=== PATIENT | male | born 1940 | race Caucasian/White ===

== ENCOUNTER 2017-08-01 13:30 | Observation (INO) | payer MEDICARE, OTHER ==
[~2017-08-01] VITALS: Ht 177.8 cm; Wt 92.0 kg
[~2017-08-01 13:30] MED LIST: LISI-222 PO
[2017-08-01 14:47] LABS: BASOPHILS % (AUTO) 0.4 % (0-1); EOSINOPHILS # (AUTO) 0.6 X10'3 (0-0.9); EOSINOPHILS % (AUTO) 7.4 % (0-6); HEMATOCRIT 48.9 % (42.0-52.0); HEMOGLOBIN 16.3 g/dl (14.0-17.9); LYMPHOCYTES # (AUTO) 2.2 X10'3 (1.1-4.8); MEAN CORPUSCULAR HEMOGLOBIN 31.7 PG (27.0-31.0); MEAN CORPUSCULAR HGB CONC 33.2 % (33.0-36.5); MEAN CORPUSCULAR VOLUME 95.4 FL (78-98); MEAN PLATELET VOLUME 7.9 FL (7.4-10.4); MONOCYTES # (AUTO) 0.7 X10'3 (0-0.9); MONOCYTES % (AUTO) 9.6 % (2-12); NEUTROPHILS # (AUTO) 4.1 X10'3 (1.8-7.7); NEUTROPHILS % (AUTO) 53.6 % (42-75); PLATELET COUNT 187 X10'3 (140-440); RED BLOOD COUNT 5.13 X10'6 (4.70-6.10); RED CELL DISTRIBUTION WIDTH 13.5 % (11.5-14.5); WHITE BLOOD COUNT 7.7 X10'3 (4.5-11.0)
[2017-08-01 14:57] LABS: PARTIAL THROMBOPLASTIN TIME 27 SECONDS (22-32); PROTHROMBIN TIME 10.4 SECONDS (9.0-12.0)
[2017-08-01 15:02] LABS: ALANINE AMINOTRANSFERASE 32 U/L (12-78); ALBUMIN 3.7 G/DL (3.4-5.0); ALBUMIN/GLOBULIN RATIO 0.9 (1.1-1.5); ALKALINE PHOSPHATASE 91 IU/L (46-116); ANION GAP 8 (8-16); ASPARTATE AMINO TRANSFERASE 19 U/L (10-37); BILIRUBIN,TOTAL 0.4 MG/DL (0.1-1.0); BLOOD UREA NITROGEN 16 MG/DL (7-18); BUN/CREATININE RATIO 15.5 (5.4-32.0); CALCIUM 9.1 MG/DL (8.5-10.1); CHLORIDE 101 MMOL/L (99-107); CREATININE 1.03 MG/DL (0.60-1.10); GLUCOSE 100 MG/DL (70-104); POTASSIUM 3.9 MMOL/L (3.5-5.1); SODIUM 136 MMOL/L (135-145); TOTAL CARBON DIOXIDE 26.8 MMOL/L (24-32); TOTAL PROTEIN 7.7 G/DL (6.4-8.2); eGFR 70 ML/MIN
[2017-08-01] MEDS ORDERED: aspirin 325mg tablet PO ONE (15:35)
[2017-08-01 17:19] LABS: CLARITY,URINE CLEAR (Clear); COLOR,URINE YELLOW (Yellow); GLUCOSE, URINE NEGATIVE (Neg); KETONES,URINE NEGATIVE (Neg); LEUKOCYTE ESTERASE ,URINE NEGATIVE (Neg); NITRITES, URINE NEGATIVE (Neg); OCCULT BLOOD,URINE NEGATIVE (Neg); PH,URINE 5.5 (4.8-8.0); PROTEIN,URINE NEGATIVE (Neg); UROBILINOGEN,URINE 0.2 E.U/dL (0.2-1.0)
[2017-08-01] MEDS ORDERED: potassium Cl 40MEQ/NS 500ml 500 ML IV PRN ×2 (17:20)
[2017-08-01] MEDS ORDERED: potassium Cl 20 mEq SR tablet PO PRN ×2 (17:20)
[2017-08-01] MEDS ORDERED: magnesium 4gm in 100ml NS 100 ML IV PRN (17:20)
[2017-08-01] MEDS ORDERED: magnesium Cl slow-release 64mg tablet PO PRN (17:20)
[2017-08-01] MEDS ORDERED: bisacodyl 10mg suppository rectal RC PRN (17:20)
[2017-08-01] MEDS ORDERED: acetaminophen 325mg tablet PO PRN (17:20)
[2017-08-01] MEDS ORDERED: magnesium hydroxide 30ml (MOM) UD suspension PO PRN (17:20)
[2017-08-01] MEDS ORDERED: mag hydrox/Alum hydrox/simeth 30ml oral suspension PO PRN (17:20)
[2017-08-01] MEDS ORDERED: magnesium 2GM in 50ml NS 50 ML IV PRN (17:20)
[2017-08-01] MEDS ORDERED: ondansetron/PF 4mg/2ml inj IV PRN (17:20)
[2017-08-01 17:22] LABS: UA COLLECTION TYPE CLN CATCH MIDSTREAM
[2017-08-01] MEDS ORDERED: NO HOME MEDS (18:22)
[2017-08-01 19:49] VITALS: BP 162/98
[2017-08-01 20:00] VITALS: BP_SYST 135; BP_SYST 140; BP_SYST 153; BP_DIAS 75; BP_DIAS 79; BP_DIAS 84
[2017-08-01] MEDS: docusate sod 100mg capsule PO SCH (20:00)
[2017-08-01] MEDS: metoprolol tartrate 12.5mg (1/2 tablet) PO SCH (20:11)
[2017-08-01] MEDS: potassium cl 20mEq in 1/2 NS 1,000 ML IV SCH (20:11)
[2017-08-01] MEDS: meclizine 12.5mg tablet PO SCH (21:12)
[2017-08-01 22:00] VITALS: BP 115/68
[2017-08-02 02:00] VITALS: BP 131/85
[2017-08-02 05:00] VITALS: BP 118/80
[2017-08-02] MEDS: potassium cl 20mEq in 1/2 NS 1,000 ML IV SCH ×2 (05:50→08:47)
[2017-08-02 06:36] LABS: BASOPHILS % (AUTO) 0.5 % (0-1); EOSINOPHILS # (AUTO) 0.7 X10'3 (0-0.9); EOSINOPHILS % (AUTO) 10.7 % (0-6); HEMATOCRIT 46.3 % (42.0-52.0); HEMOGLOBIN 15.7 g/dl (14.0-17.9); LYMPHOCYTES # (AUTO) 1.9 X10'3 (1.1-4.8); LYMPHOCYTES % (AUTO) 27.9 % (21-51); MEAN CORPUSCULAR HEMOGLOBIN 31.9 PG (27.0-31.0); MEAN CORPUSCULAR HGB CONC 33.8 % (33.0-36.5); MEAN CORPUSCULAR VOLUME 94.3 FL (78-98); MEAN PLATELET VOLUME 8.1 FL (7.4-10.4); MONOCYTES # (AUTO) 0.8 X10'3 (0-0.9); MONOCYTES % (AUTO) 12.2 % (2-12); NEUTROPHILS # (AUTO) 3.2 X10'3 (1.8-7.7); NEUTROPHILS % (AUTO) 48.7 % (42-75); PLATELET COUNT 184 X10'3 (140-440); RED BLOOD COUNT 4.91 X10'6 (4.70-6.10); RED CELL DISTRIBUTION WIDTH 13.9 % (11.5-14.5); WHITE BLOOD COUNT 6.7 X10'3 (4.5-11.0)
[2017-08-02 06:45] LABS: ALBUMIN 3.3 G/DL (3.4-5.0); ANION GAP 3 (8-16); BLOOD UREA NITROGEN 15 MG/DL (7-18); BUN/CREATININE RATIO 14.3 (5.4-32.0); CALCIUM 8.8 MG/DL (8.5-10.1); CHLORIDE 105 MMOL/L (99-107); CREATININE 1.05 MG/DL (0.60-1.10); GLUCOSE 97 MG/DL (70-104); POTASSIUM 4.3 MMOL/L (3.5-5.1); SODIUM 137 MMOL/L (135-145); eGFR 69 ML/MIN
[2017-08-02] MEDS ORDERED: enoxaparin 40mg/0.4ml syringe SUBCUT SCH (08:00)
[2017-08-02] MEDS: docusate sod 100mg capsule PO SCH (08:00)
[2017-08-02] MEDS ORDERED: K and/or MAG REPLACEMENT MC SCH (08:00)
[2017-08-02] MEDS ORDERED: aspirin 81mg tablet.DR PO SCH (08:00)
[2017-08-02] MEDS: metoprolol tartrate 12.5mg (1/2 tablet) PO SCH (08:48)
[2017-08-02] MEDS: meclizine 12.5mg tablet PO SCH ×2 (08:51→13:19)
[2017-08-02 10:00] VITALS: BP_SYST 111; BP_SYST 119; BP_SYST 124; BP_DIAS 70; BP_DIAS 77; BP_DIAS 82
[2017-08-02 10:01] LABS: HEMOGLOBIN A1C 5.6 % (4.5-6.2)
[2017-08-02] MEDS ORDERED: METO25TA6 PO (13:46)
[2017-08-02] MEDS ORDERED: MECL12.584 PO (13:46)
[2017-08-02] MEDS ORDERED: ASPI-1071 PO (13:46)
== END 2017-08-02 14:30 | disposition home or self-care (01) ==
LOC: ER 13:30 → ED HOLD 17:20 → ORTHO 4S 19:15
PROVIDERS: ADMIT Internal Medicine; ATTEND Internal Medicine
DX: R42 Dizziness and giddiness (principal); R55 Syncope and collapse; I10 Essential (primary) hypertension
CPT/HCPCS: 36415; 70450; 70544; 70551; 71045; 80048; 80053; 81003; 83036; 83735; 84484; 85025; 85610; 85651; 85730; 87070; 92616; 93005; 93306; 93880; 96360; 96361; 99285; G0378; J8597; J1650

== ENCOUNTER 2020-12-08 11:06 | Emergency (ER) | payer MEDICARE, OTHER ==
[~2020-12-08] VITALS: Ht 175.3 cm; Wt 81.8 kg
[~2020-12-08 11:06] MED LIST changes: +ASPI-1071 PO; -LISI-222 PO; +LOP25T PO; +MECL-226 PO
[2020-12-08 11:33] VITALS: BP 146/88
--- NOTE | 2020-12-08 13:12 | NUR ---
Per registration, patient left and would not wait to seek with car builder. Patient was called back and not in lobby once. Will call patient at listed number on chart.
--- NOTE | 2020-12-08 13:19 | NUR ---
Called patient at listed number. Explained to patient that I was called to check if he might be outside or in his vehicle to make sure we didn't missed him because we had called him back to a room and he was not in lobby. Patient hung up without a word. aware.
== END 2020-12-08 13:21 | disposition left against medical advice (07) ==
LOC: ER 11:07
DX: R51.9 Headache, unspecified (principal); Z53.21 Procedure and treatment not carried out due to patient leaving prior to being seen by health care provider

== ENCOUNTER 2020-12-08 14:21 | Emergency (ER) | payer MEDICARE ==
[~2020-12-08] VITALS: Ht 175.3 cm; Wt 81.8 kg
[2020-12-08] MEDS ORDERED: acetaminophen 325mg tablet PO ONE (16:30)
[2020-12-08 16:46] VITALS: BP 168/92
== END 2020-12-08 16:47 | disposition home or self-care (01) ==
LOC: ER 14:22
DX: S09.90XA Unspecified injury of head, initial encounter (principal); R51.9 Headache, unspecified; I10 Essential (primary) hypertension; Z98.890 Other specified postprocedural states; Z72.89 Other problems related to lifestyle; Z79.82 Long term (current) use of aspirin; Z79.899 Other long term (current) drug therapy; W01.0XXA Fall on same level from slipping, tripping and stumbling without subsequent striking against object, initial encounter; Y93.89 Activity, other specified; Y92.89 Other specified places as the place of occurrence of the external cause; Y99.8 Other external cause status
CPT/HCPCS: 70450; 72125; 99285